=== PATIENT | male | born 1985 | race Caucasian/White ===

== ENCOUNTER 2023-12-18 22:12 | Emergency (ER) | payer MEDICAID, OTHER ==
[~2023-12-18] VITALS: Ht 182.9 cm; Wt 90.7 kg
[2023-12-19] MEDS ORDERED: IBUPROFEN 400 MG TABLET ONE (00:11)
[2023-12-19] MEDS: IBUPROFEN 400 MG TABLET PO ONE (00:17)
[2023-12-19 03:16] VITALS: BP 124/89; TEMP 98; O2SAT 98
== END 2023-12-19 03:17 | disposition home or self-care (01) ==
LOC: ER 22:19
DX: S39.012A Strain of muscle, fascia and tendon of lower back, initial encounter (principal); S80.01XA Contusion of right knee, initial encounter; S90.01XA Contusion of right ankle, initial encounter; Y04.0XXA Assault by unarmed brawl or fight, initial encounter; Y93.89 Activity, other specified; Y92.89 Other specified places as the place of occurrence of the external cause; Y99.8 Other external cause status
CPT/HCPCS: 72110-TC; 73564-TC; 73610-TC

== ENCOUNTER 2025-05-07 00:02 | Emergency (ER) | payer MEDICAID, OTHER ==
[~2025-05-07] VITALS: Ht 195.6 cm; Wt 90.7 kg
[2025-05-07] MEDS ORDERED: BACLOFEN (10 MG) 10 MG TABLET ONE (00:54)
[2025-05-07] MEDS ORDERED: KETOROLAC TROMETHAMINE INJ 30 MG/ML VIAL ONE (00:54)
[2025-05-07] MEDS: KETOROLAC TROMETHAMINE INJ 30 MG/ML VIAL IM ONE (01:03)
[2025-05-07] MEDS: BACLOFEN (10 MG) 10 MG TABLET PO ONE (01:03)
[2025-05-07] MEDS ORDERED: IBUPROFEN 400 MG TABLET ONE (01:23)
[2025-05-07] MEDS: IBUPROFEN 400 MG TABLET PO ONE (01:27)
[2025-05-07] MEDS ORDERED: BACL10TA PO (01:38)
[2025-05-07] MEDS ORDERED: KETO10TA2 PO (01:38)
[2025-05-07 01:53] VITALS: BP 132/88; TEMP 98.5; O2SAT 97
== END 2025-05-07 01:54 | disposition home or self-care (01) ==
LOC: ER 00:04
DX: S13.4XXA Sprain of ligaments of cervical spine, initial encounter (principal); V89.2XXA Person injured in unspecified motor-vehicle accident, traffic, initial encounter; Y93.89 Activity, other specified; Y92.89 Other specified places as the place of occurrence of the external cause; Y99.8 Other external cause status; Z79.899 Other long term (current) drug therapy
CPT/HCPCS: 99284; 71250; 74176; J1885